=== PATIENT | male | born 1995 | race Caucasian/White ===

== ENCOUNTER 2018-10-23 12:04 | Emergency (ER) | payer OTHER ==
[~2018-10-23] VITALS: Ht 190.5 cm; Wt 85.0 kg
[2018-10-23] MEDS ORDERED: LIDOCAINE HCL/PF 1% 10 MG/ML 5ML VIAL IJ ONE (13:30)
[2018-10-23 14:56] VITALS: BP 129/67
== END 2018-10-23 14:59 | disposition home or self-care (01) ==
LOC: ER 12:30
DX: S61.412A Laceration without foreign body of left hand, initial encounter (principal); Z98.890 Other specified postprocedural states; W01.0XXA Fall on same level from slipping, tripping and stumbling without subsequent striking against object, initial encounter; Y93.89 Activity, other specified; Y92.89 Other specified places as the place of occurrence of the external cause; Y99.8 Other external cause status
CPT/HCPCS: 12001; 73130; 99283

== ENCOUNTER 2018-10-30 05:19 | Emergency (ER) | payer OTHER ==
[~2018-10-30] VITALS: Ht 190.5 cm; Wt 82.0 kg
[2018-10-30 07:30] VITALS: BP 115/67
== END 2018-10-30 08:43 | disposition home or self-care (01) ==
LOC: ER 05:19
DX: S66.821D Laceration of other specified muscles, fascia and tendons at wrist and hand level, right hand, subsequent encounter (principal); Z48.02 Encounter for removal of sutures; X58.XXXD Exposure to other specified factors, subsequent encounter
CPT/HCPCS: 99283; Z7610